=== PATIENT | female | born 1955 | race African-American/Black ===

== ENCOUNTER 2018-04-13 15:13 | Emergency (ER) | payer OTHER, MEDICAID ==
[2018-04-13 15:31] VITALS: BP 133/63; TEMP 98.9; BMI 29.1
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
== END 2018-04-13 17:16 | disposition home or self-care (01) ==
LOC: ED 15:13
DX: M25.512 Pain in left shoulder (principal); V49.9XXA Car occupant (driver) (passenger) injured in unspecified traffic accident, initial encounter; F17.210 Nicotine dependence, cigarettes, uncomplicated; M54.5 Low back pain
CPT/HCPCS: 99283

== ENCOUNTER 2018-05-19 17:12 | Emergency (ER) | payer MEDICAID, OTHER ==
[2018-05-19 17:19] VITALS: BP 155/75; TEMP 98.6; BMI 29.2
--- NOTE | 2018-05-19 18:18 | ED.PDOC ---
General ED Provider: Dr. JOHNY MCKINNEY Chief Complaint: Toe Pain/Injury Stated Complaint: Kicked at her bull puppy and struck a door with her Rt Foot- had immediate pain Time Seen by Physician: 17:40 Mode of Arrival: Wheelchair Information Source: Patient Exam Limitations: No limitations Primary Care Provider: LUCIANA MCCRAY Referred to ED by: PCP Nursing and Triage Documentation Reviewed and Agree: Yes Does patient meet sepsis criteria?: No If yes, has appropriate treatment been initiated?: No System Inflammatory Response Syndrome: Not Applicable Sepsis Protocol: For patient's 13 years and over: Temp is 96.8 and below OR 101 and greater Pulse >90 BPM Resp >20/minute Acutely Altered Mental Status Are patient's symptoms suggestive of a new infection, such as: -Pneumonia -Skin, Soft Tissue -Endocarditis -UTI -Bone, Joint Infection -Implantable Device -Acute Abdominal Infection -Wound Infection -Meningitis -Blood Stream Catheter Infection -Unknown Musculoskeletal Complaint Exam - Ankle/Foot Complaint/Exam Location of Injury: Reports: Foot, Toe #1, Toe #2, Toe #3, Toe #4 Mechanism of Injury: Reports: Trauma Onset/Duration: Earlier Symptoms Are: Reports: Still present, Worse Onset of Pain: Reports: Immediate Initial Severity: Moderate Current Severity: Moderate Location: Reports: Diffuse Character: Reports: Aching, Throbbing Alleviating: Reports: Rest Aggravating: Reports: Movement, Weight bearing, Prolonged standing Able to Bear Weight: Yes (painful) Associated Signs and Symptoms: Denies: Swelling, Redness, Bruising, Fever, Weakness, Numbness, Tingling Related History: Denies: Similar episode Gout Risk Factors: Reports: None Related Surgical History: Reports: None Lower Extremity Findings: Present: Tenderness (foot mid foot) Achilles Tendon Abnormality: No Tenderness: Present: Midfoot, Metatarsals, Digits Limited Range of Motion: Present: Dorsiflexion Differential Diagnosis: Closed Fracture, Strain, Other (contusion ) Review of Systems - Review Of Systems Constitutional: Reports: No symptoms Eyes: Reports: No symptoms Ears, Nose, Mouth, Throat: Reports: No symptoms Respiratory: Reports: No symptoms Cardiac: Reports: No symptoms GI: Reports: No symptoms : Reports: No symptoms Musculoskeletal: Reports: No symptoms Skin: Reports: No symptoms Neurological: Reports: No symptoms Endocrine: Reports: No symptoms Hematologic/Lymphatic: Reports: No symptoms All Other Systems: Reviewed and Negative Past Medical History - Past Medical History Previously Healthy: Yes Endocrine: Reports: None Cardiovascular: Reports: Hypertension Respiratory: Reports: None Hematological: Reports: None Gastrointestinal: Reports: None Genitourinary: Reports: None Neuro/Psych: Reports: None Musculoskeletal: Reports: None Cancer: Reports: None Last Menstrual Period: unknown, post menopausal - Surgical History General Surgical History: Reports: None - Family History Family History: Reports: None - Social History Smoking Status: Current every day smoker, Light tobacco smoker Hx Substance Use: No Alcohol Screening: Occasionally Physical Exam - Physical Exam Appearance: Well-appearing, No pain distress, Well-nourished Eyes: DELVIN, EOMI, Conjunctiva clear ENT: Ears normal, Nose normal, Oropharynx normal Respiratory: Airway patent, Breath sounds clear, Breath sounds equal, Respirations nonlabored Cardiovascular: RRR, Pulses normal, No rub, No murmur GI/: Soft, Nontender, No masses, Bowel sounds normal, No Organomegaly Musculoskeletal: Normal strength, ROM intact, No edema, No calf tenderness, Limited ROM (Rt Foot MTF joints) Skin: Warm, Dry, Normal color Neurological: Sensation intact, Motor intact, Reflexes intact, Cranial nerves intact, Alert, Oriented Psychiatric: Affect appropriate, Mood appropriate Critical Care Note - Critical Care Note Total Time (mins): 0 Course - Course Orders, Labs, Meds: Orders Category Date Time Status Ketorolac Tromethamine [Toradol] MEDS 05/19/18 18:05 Discontinued 30 mg IM ONCE STA FOOT, RIGHT 3 VIEWS Stat RADS 05/19/18 18:04 Completed Medications Discontinued Medications Generic Name Dose Route Start Last Admin Trade Name Hayley PRN Reason Stop Dose Admin Ketorolac Tromethamine 30 mg 05/19/18 18:05 05/19/18 18:19 Toradol IM 05/19/18 18:06 30 mg ONCE STA Administration Vital Signs: Temp Pulse Resp BP Pulse Ox 05/19/18 17:13 98.6 F 78 20 155/75 H 99 Departure - Departure Time of Disposition: 18:50 Disposition: DISCH W/I HOSP TO [facility] Discharge Problem: Contusion of foot, right, Sprain of toe, fourth, right Discharge Problem: (Ruled Out): Abrasion of fourth toe Instructions: Contusion in Adults (ED), Toe Fracture (ED) Condition: Good Pt referred to PMD for follow-up: Yes IPMP verified?: No Additional Instructions: Kristofer splint 4th toe Rt Foot Contusion Ice and elevation Minimize ambulation Meloxicam for pain Tylenol 2 as needed for pain control every 6 hours Allergies/Adverse Reactions: Allergies No Known Allergies Allergy (Verified 05/19/18 17:19) Home Medications: Ambulatory Orders Meloxicam [Mobic] 7.5 mg PO PRN PRN 04/13/18 Metoprolol Succinate [Toprol Xl] 25 mg PO DAILY 04/13/18 Disposition Discussed With: Patient
[2018-05-19] MEDS: TORADOL IM STA (18:19)
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
== END 2018-05-19 19:43 | disposition home or self-care (01) ==
LOC: ED 17:12
DX: S90.31XA Contusion of right foot, initial encounter (principal); S93.504A Unspecified sprain of right lesser toe(s), initial encounter; W22.8XXA Striking against or struck by other objects, initial encounter; F17.210 Nicotine dependence, cigarettes, uncomplicated
CPT/HCPCS: 96372; 99283